=== PATIENT | female | born 1980 | race Caucasian/White ===

== ENCOUNTER 2016-11-14 11:11 | Emergency (ER) ==
[2016-11-14 11:42] LABS: MANUAL DIFF NEEDED? NO
[2016-11-14 11:44] LABS: BASO% 0.5 % (0.0-0.8); EOS# 0.17 X1000 (0.0-0.7); HEMATOCRIT 42.9 % (37.0-47.0); HEMOGLOBIN 14.9 g/dL (12.0-16.0); IMM GRAN# 0.03 X1000 (0.0-0.04); IMM GRAN% 0.4 % (0.0-0.5); LYMPH% 32.3 % (20.5-51.1); MCH 29.7 PG (27-31); MCHC 34.7 g/dL (33-37); MCV 85.6 FL (81-99); MONO# 0.82 X1000 (0.11-0.59); MONO% 9.8 % (1.7-9.3); MPV 9.7 FL (7.4-10.4); PLT 283 X1000 (130-400); RBC 5.01 XMIL (4.2-5.4)
[2016-11-14 11:49] LABS: URINE CULTURE PL NEEDED? NO; URINE SOURCE VOIDED
[2016-11-14 11:56] LABS: UR AMPHETAMINES QUAL NONE DETECTED (NONE DETECT); UR BARBITUATES QUAL NONE DETECTED (NONE DETECT); UR BENZODIAZEPIN QUAL NONE DETECTED (NONE DETECT); UR CANNABINOIDS QUAL NONE DETECTED (NONE DETECT); UR COCAINE QUAL NONE DETECTED (NONE DETECT); UR MDMA QUAL NONE DETECTED (NONE DETECT); UR METHADONE QUAL NONE DETECTED (NONE DETECT); UR METHAMPHETAMINE QUAL NONE DETECTED (NONE DETECT); UR OPIATES QUAL NONE DETECTED (NONE DETECT); UR OXYCODONE QUAL NONE DETECTED (NONE DETECT); UR PCP QUAL NONE DETECTED (NONE DETECT); UR TCA QUAL NONE DETECTED (NONE DETECT)
[2016-11-14 11:59] LABS: BILIRUBIN URINE NEGATIVE (NEGATIVE); BLOOD URINE NEGATIVE (NEGATIVE); CLARITY CLEAR (CLEAR); COLOR YELLOW; GLUCOSE URINE NEGATIVE (NEGATIVE); LEUKOCYTES URINE NEGATIVE (NEGATIVE); NITRITE URINE NEGATIVE (NEGATIVE); PROTEIN URINE NEGATIVE (NEGATIVE); UROBILINOGEN URINE NORMAL
[2016-11-14 12:04] LABS: URINE EPITHELIAL CELLS >10 /HPF (<10); URINE WBC <10 /HPF (<10)
[2016-11-14 12:11] LABS: AGAP 12; ALBUMIN 4.4 g/dL (3.5-5.0); ALKALINE PHOSPHATASE 75 U/L (32-104); BUN 8 mg/dL (8-22); CHLORIDE 103 mmol/L (98-107); COSMO 266; GOT 18 U/L (10-30); GPT 15 U/L (10-36); POTASSIUM 3.7 mmol/L (3.5-5.1); SODIUM 134 mmol/L (136-145); TCO2 19 mmol/L (25-35); TOTAL PROTEIN 7.3 g/dL (6.3-8.3)
[2016-11-14 12:17] LABS: INR 0.97 (0.86-1.15); PROTIME 13.2 Seconds (12.1-15.5)
[2016-11-14 12:18] LABS: PTT PL 28.6 Seconds (22.6-43.9)
--- NOTE | 2016-11-14 12:21 | EKG Report ---
Test Performed on : 11/14/2016 12:08:52 PM Test Reason : AMS Blood Pressure : / mmHG Vent. Rate : 069 BPM Atrial Rate : 069 BPM P-R Int : 136 ms QRS Dur : 074 ms QT Int : 382 ms P-R-T Axes : 039 088 062 degrees QTc Int : 409 ms Normal sinus rhythm. Normal ECG When compared with ECG of 15-AUG-2015 11:10, No significant change was found Unconfirmed Result
[2016-11-14 12:29] LABS: BE -3.6 mmoll (-3.0-3.0); BLOOD TYPE ARTERIAL; DRAW SITE R RADIAL; METHB 0.5 % (0.0-1.5); O2(CT) 19.9 mL/dL (15.0-23.0); PCO2(98.6) 28 mmHg (35-45); PO2(98.6) 95 mmHg (60-100); SAMPLE BLOOD; SAO2 97.8 % (95.0-100.0); THB 15.2 g/dL (11.5-17.4); pH(98.6) 7.44 (7.35-7.45)
[2016-11-14 12:31] LABS: ALLEN TEST YES; MODALITY ROOM AIR
--- NOTE | 2016-11-14 12:37 | Diag Imaging Result Document ---
PROCEDURE NAME: CHEST-PORTABLE - 11/14/2016 ERECT AP CHEST AT 1143 HOURS: FINDINGS: There is no evidence of acute cardiac or pulmonary disease. Compared to 01/20/2016, there has been no significant change. IMPRESSION: No acute disease.
--- NOTE | 2016-11-14 12:42 | Diag Imaging Result Document ---
PROCEDURE NAME: HEAD W/O CONTRAST - 11/14/2016 CT OF THE HEAD WITHOUT CONTRAST: FINDINGS: There is no evidence of mass effect, bleed, or abnormal extra-axial fluid collection. There is a calcification in the left globus pallidus which was also present on 12/24/2015. The visualized paranasal sinuses are clear. There is no evidence of acute bony disease. IMPRESSION: Stable CT of the head.
[2016-11-14] MEDS ORDERED: NS 1,000 ML IV ONE (13:13)
[2016-11-14] MEDS ORDERED: NS 500 ML ONE (13:29)
[2016-11-14] MEDS ORDERED: TYLENOL WITH CODEINE #3 PO ONE (13:35)
--- NOTE | 2016-11-14 14:33 | PROVIDER DOCUMENTATION ---
HPI-General Adult - General Chief Complaint: Stroke-Like Symptoms Stated Complaint: weakness, possible stroke Time Seen by Provider: 11/14/16 13:11 Source: patient Allergies/Adverse Reactions: Patient Allergies Allergy/AdvReac Type Severity Reaction Status Date / Time morphine Allergy Severe SWELLING Verified 11/14/16 11:23 meperidine HCl * Allergy Mild RASH Verified 11/14/16 11:23 [From Demerol] metronidazole [From Flagyl] AdvReac Intermediate VOMITING Verified 11/14/16 11: 23 Home Medications: Home Medication List Medication Instructions Recorded Confirmed Last Taken Type Gabapentin [Neurontin] 300 mg PO TID PRN #30 capsule 09/28/15 01/20/16 Unknown Rx Alprazolam [Xanax] 0.5 mg PO BID 01/20/16 01/20/16 Unknown History Metoprolol [Lopressor] 50 mg PO DAILY 01/20/16 01/20/16 Unknown History Ketorolac [Toradol] 10 mg PO Q6H PRN PRN #15 tablet 06/07/16 Unknown Rx - History of Present Illness -Gen Adult Nature of Presenting Problems: 36 yo female presents to ER with c/o left side weakness and rt side facial droop , onset 0500 today, progressively worse, has CP onset 1000, w/o vomiting, nausea w/o vomiting. pain in lower back and left arm now Location of Pain/Injury: reports: back (low back pain) Pain Radiation: reports: no radiation Quality of Pain: reports: aching Severity: reports: mild Timing: reports: improving Context/Activities at Onset: reports: none Modifying Factors: improves with: nothing Similar Symptoms Previously?: Yes Recently seen or treated by another doctor?: No Review of Systems - Adult - REVIEW OF SYSTEMS - ADULT Constitutional: reports: no symptoms reported Eyes: reports: no symptoms reported Ears, Nose, Mouth & Throat: reports: no symptoms reported Cardiovascular: reports: no symptoms reported Respiratory: reports: no symptoms reported Gastrointestinal: reports: see HPI, nausea, vomiting Genitourinary: reports: no symptoms reported Musculoskeletal: reports: see HPI, back pain Integumentary: reports: no symptoms reported Neurological: reports: see HPI Psychiatric: reports: no symptoms reported Endocrine: reports: no symptoms reported Hematologic/Lymphatic: reports: no symptoms reported Allergic/Immunologic: reports: no symptoms reported All Other Systems: Reviewed and Negative Past History - Adult - PAST MEDICAL HISTORY-ADULT Review of Records: reports: Old Records Reviewed, Nursing Assessment Review, Medications Reviewed, Social history reviewed & non-contributory. Major Childhood Illnesses: reports: denies history Cardiovascular: reports: denies history, HTN Respiratory: reports: denies history Gastrointestinal: reports: GERD Obstetrical/Gynecological: reports: other (cervical ca) Genitourinary: reports: denies history Musculoskeletal: reports: chronic pain, neck/back injury, osteoporosis Neurological: reports: headaches/migraines Psychiatric: reports: anxiety - PRIOR SURGERIES/PROCEDURES Surgical/Procedure History: reports: hysterectomy, orthopedic (extremity) - IMMUNIZATION STATUS Childhood Immunizations: See Nurse Assessment Flu Vaccine: See Nurse Assessment - SOCIAL HISTORY Smoking: cigarettes, less than 1 pack/day (1/2 ppd) Provider spent 3-5 mins advising pt. on dangers of tobacco.: Discussed manners to quit use, and f/u contacts for add'l counseling. Substance Use: denies Alcohol Use Frequency: never Living Situation: family Physical Exam-General - PHYSICAL EXAM-ADULT Initial Vital Signs Reviewed: Yes - CONSTITUTIONAL General Appearance: appears well, alert, no apparent distress - EYES Eyes: PERRL/EOMI, pink conjunctivae - HEAD, EARS, NOSE, MOUTH & THROAT HENMT: normocephalic/atraumatic, moist mucous membranes, normal ENT inspection - NECK Neck: non-tender, full range of motion, supple - RESPIRATORY Respiratory: lungs clear, normal breath sounds, no respiratory distress - CARDIOVASCULAR Cardiovascular: normal peripheral pulses, regular rate, rhythm - GASTROINTESTINAL (ABDOMEN) Abdominal Exam: normal bowel sounds, non tender, soft - MUSCULOSKELETAL Back Exam: normal inspection, other (low back pain) Extremity: normal range of motion, normal inspection Peripheral Pulses: radial (R): 2+, radial (L): 2+, dorsalis-pedis (R): 2+, dorsalis-pedis (L): 2+ - SKIN Integumentary: normal color, normal turgor, warm/dry - NEUROLOGIC Neurologic: coutierier II-XII nml as tested, grossly normal, no motor/sensory deficits - PSYCHIATRIC Psych/Mental Status: normal mood/affect, normal thought content, normal thought process, oriented x 3 Progress - PLAN OF CARE/RESULTS Progress/Plan/Lab Results: [id number] results/dx/tx/discharge and follow up instructions with patient and mother; they verbalized understanding. Laboratory Tests 11/14/16 11/14/16 11/14/16 11:15 11:25 11:25 WBC 8.35 RBC 5.01 Hgb 14.9 Hct 42.9 MCV 85.6 MCH 29.7 MCHC 34.7 RDW Std Deviation 12.1 Plt Count 283 MPV 9.7 Immature Gran % (Auto) 0.4 Neut % (Auto) 55.0 Lymph % (Auto) 32.3 [place] % (Auto) 9.8 H Eos % (Auto) 2.0 Baso % (Auto) 0.5 Immature Gran # (Auto) 0.03 Neut # (Auto) 4.59 Lymph # (Auto) 2.70 [place] # (Auto) 0.82 H Eos # (Auto) 0.17 Baso # (Auto) 0.04 PT INR APTT (Factor Assay) Specimen Type Sample Site pH pCO2 pO2 HCO3 Base Excess Oxyhemoglobin ABG O2 Sat (Calculated) ABG O2 Saturation ABG Carboxyhemoglobin ABG Methemoglobin Tyree Test A-a O2 Difference Total Hemoglobin Lactate Blood Gas Modality FiO2 % Sodium 134 L Potassium 3.7 Chloride 103 Carbon Dioxide 19 L Anion Gap 12 BUN 8 Creatinine 0.5 Estimated GFR/1.73 m2 > 60 BUN/Creatinine Ratio 16 Glucose 89 POC Glucose 74 Calculated Osmolality 266 Calcium 9.0 Total Bilirubin 1.10 H AST 18 ALT 15 Alkaline Phosphatase 75 Creatine Kinase Troponin T Total Protein 7.3 Albumin 4.4 Globulin 3.0 Albumin/Globulin Ratio 2.0 Plasma Lactate Urine Source Urine Color Urine Clarity Urine pH Ur Specific [place] Urine Protein Urine Ketones Urine Blood Urine Nitrite Urine Bilirubin Urine Urobilinogen Urine Microscopic RBC Urine WBC Urine Microscopic WBC Ur Epithelial Cells Urine Glucose Urine Opiates Screen Ur Oxycodone Screen Urine Methadone Screen Ur Barbituates Screen Ur Tricyclics Screen Ur Phencyclidine Scrn Ur Amphetamines Screen U Methamphetamines Scrn Urine MDMA Screen U Benzodiazepines Scrn Urine Cocaine Screen U Cannabinoids Screen Plasma/Serum Ethyl Alc 11/14/16 11/14/16 11/14/16 11:25 11:25 11:25 WBC RBC Hgb Hct MCV MCH MCHC RDW Std Deviation Plt Count MPV Immature Gran % (Auto) Neut % (Auto) Lymph % (Auto) [place] % (Auto) Eos % (Auto) Baso % (Auto) Immature Gran # (Auto) Neut # (Auto) Lymph # (Auto) [place] # (Auto) Eos # (Auto) Baso # (Auto) PT INR APTT (Factor Assay) Specimen Type Sample Site pH pCO2 pO2 HCO3 Base Excess Oxyhemoglobin ABG O2 Sat (Calculated) ABG O2 Saturation ABG Carboxyhemoglobin ABG Methemoglobin Tyree Test A-a O2 Difference Total Hemoglobin Lactate Blood Gas Modality FiO2 % Sodium Potassium Chloride Carbon Dioxide Anion Gap BUN Creatinine Estimated GFR/1.73 m2 BUN/Creatinine Ratio Glucose POC Glucose Calculated Osmolality Calcium Total Bilirubin AST ALT Alkaline Phosphatase Creatine Kinase 97 Troponin T < 0.010 Total Protein Albumin Globulin Albumin/Globulin Ratio Plasma Lactate Urine Source Urine Color Urine Clarity Urine pH Ur Specific [place] Urine Protein Urine Ketones Urine Blood Urine Nitrite Urine Bilirubin Urine Urobilinogen Urine Microscopic RBC Urine WBC Urine Microscopic WBC Ur Epithelial Cells Urine Glucose Urine Opiates Screen Ur Oxycodone Screen Urine Methadone Screen Ur Barbituates Screen Ur Tricyclics Screen Ur Phencyclidine Scrn Ur Amphetamines Screen U Methamphetamines Scrn Urine MDMA Screen U Benzodiazepines Scrn Urine Cocaine Screen U Cannabinoids Screen Plasma/Serum Ethyl Alc 11/14/16 11/14/16 11/14/16 11:25 11:36 11:36 WBC RBC Hgb Hct MCV MCH MCHC RDW Std Deviation Plt Count MPV Immature Gran % (Auto) Neut % (Auto) Lymph % (Auto) [place] % (Auto) Eos % (Auto) Baso % (Auto) Immature Gran # (Auto) Neut # (Auto) Lymph # (Auto) [place] # (Auto) Eos # (Auto) Baso # (Auto) PT 13.2 INR 0.97 APTT (Factor Assay) 28.6 Specimen Type Sample Site pH pCO2 pO2 HCO3 Base Excess Oxyhemoglobin ABG O2 Sat (Calculated) ABG O2 Saturation ABG Carboxyhemoglobin ABG Methemoglobin Tyree Test A-a O2 Difference Total Hemoglobin Lactate Blood Gas Modality FiO2 % Sodium Potassium Chloride Carbon Dioxide Anion Gap BUN Creatinine Estimated GFR/1.73 m2 BUN/Creatinine Ratio Glucose POC Glucose Calculated Osmolality Calcium Total Bilirubin AST ALT Alkaline Phosphatase Creatine Kinase Troponin T Total Protein Albumin Globulin Albumin/Globulin Ratio Plasma Lactate Urine Source VOIDED Urine Color YELLOW Urine Clarity CLEAR Urine pH 8.0 Ur Specific [place] 1.010 Urine Protein NEGATIVE Urine Ketones NEGATIVE Urine Blood NEGATIVE Urine Nitrite NEGATIVE Urine Bilirubin NEGATIVE Urine Urobilinogen NORMAL Urine Microscopic RBC Not Reportable Urine WBC NEGATIVE Urine Microscopic WBC <10 Ur Epithelial Cells >10 A Urine Glucose NEGATIVE Urine Opiates Screen NONE DETECTED Ur Oxycodone Screen NONE DETECTED Urine Methadone Screen NONE DETECTED Ur Barbituates Screen NONE DETECTED Ur Tricyclics Screen NONE DETECTED Ur Phencyclidine Scrn NONE DETECTED Ur Amphetamines Screen NONE DETECTED U Methamphetamines Scrn NONE DETECTED Urine MDMA Screen NONE DETECTED U Benzodiazepines Scrn NONE DETECTED Urine Cocaine Screen NONE DETECTED U Cannabinoids Screen NONE DETECTED Plasma/Serum Ethyl Alc 11/14/16 11/14/16 12:00 12:15 WBC RBC Hgb Hct MCV MCH MCHC RDW Std Deviation Plt Count MPV Immature Gran % (Auto) Neut % (Auto) Lymph % (Auto) [place] % (Auto) Eos % (Auto) Baso % (Auto) Immature Gran # (Auto) Neut # (Auto) Lymph # (Auto) [place] # (Auto) Eos # (Auto) Baso # (Auto) PT INR APTT (Factor Assay) Specimen Type ARTERIAL Sample Site R RADIAL pH 7.44 pCO2 28 L pO2 95 HCO3 22.0 Base Excess -3.6 L Oxyhemoglobin 93.0 L ABG O2 Sat (Calculated) 19.9 ABG O2 Saturation 97.8 ABG Carboxyhemoglobin 4.40 H ABG Methemoglobin 0.5 Tyree Test YES A-a O2 Difference 20.0 Total Hemoglobin 15.2 Lactate 0.60 Blood Gas Modality ROOM AIR FiO2 % 21.0 Sodium Potassium Chloride Carbon Dioxide Anion Gap BUN Creatinine Estimated GFR/1.73 m2 BUN/Creatinine Ratio Glucose POC Glucose Calculated Osmolality Calcium Total Bilirubin AST ALT Alkaline Phosphatase Creatine Kinase Troponin T Total Protein Albumin Globulin Albumin/Globulin Ratio Plasma Lactate 0.8 Urine Source Urine Color Urine Clarity Urine pH Ur Specific [place] Urine Protein Urine Ketones Urine Blood Urine Nitrite Urine Bilirubin Urine Urobilinogen Urine Microscopic RBC Urine WBC Urine Microscopic WBC Ur Epithelial Cells Urine Glucose Urine Opiates Screen Ur Oxycodone Screen Urine Methadone Screen Ur Barbituates Screen Ur Tricyclics Screen Ur Phencyclidine Scrn Ur Amphetamines Screen U Methamphetamines Scrn Urine MDMA Screen U Benzodiazepines Scrn Urine Cocaine Screen U Cannabinoids Screen Plasma/Serum Ethyl Alc Orders Category Date Time Status Cardiac Monitoring DIRECTED Care 11/14/16 11:17 Active Finger Stick Blood Sugar (ED) DIRECTED Care 11/14/16 11:17 Active Oxygen Therapy- ED Nursing DIRECTED Care 11/14/16 11:17 Active Saline Loc NOW Care 11/14/16 11:17 Active CHEST-PORTABLE [RAD] Stat Exams 11/14/16 11:17 Completed HEAD W/O CONTRAST [CT] Stat Exams 11/14/16 11:13 Completed ABG [RESP] Routine Lab 11/14/16 12:15 Completed ALCOHOL BLOOD Stat Lab 11/14/16 11:25 Completed CBC WITH ELECTRONIC DIFF [HEME] Stat Lab 11/14/16 11:25 Completed CK PROFILE [SP CHEM] Stat Lab 11/14/16 11:25 Completed CMP [COMPREHENSIVE METABOLIC PANEL] [CHEM] Stat Lab 11/14/16 11:25 Completed LACTATE, PLASMA [CHEM] Stat Lab 11/14/16 12:00 Completed [address]IME WITH INR PL [COAG] Stat Lab 11/14/16 11:[address] [COAG] Stat Lab 11/14/16 11:25 Completed TROPONIN T Stat Lab 11/14/16 11:[address] W/POSS RFLX CULT [URINALYSIS] Stat Lab 11/14/16 11:36 Completed URINE DRUG SCREEN PL Stat Lab 11/14/16 11:36 Completed 0.9% Sodium Chloride Inj [Ns] 1,000 ml Med 11/14/16 13:13 Discontinued IV 999 mls/hr 0.9% Sodium Chloride Inj [Ns] 500 ml Med 11/14/16 13:29 Discontinued .ROUTE As Directed Acetaminophen with Codeine [Tylenol with Codeine #3] Med 11/14/16 13:35 Discontinued 1 each PO NOW ONE Pulse Oximetry Stat Oth 11/14/16 11:17 Active EKG [EKG] Stat Ther 11/14/16 11:17 Draft Vital Signs - 24 hr 11/14/16 11/14/16 11/14/16 11:16 13:00 13:43 Temperature 98.8 F Pulse Rate 74 68 69 Respiratory 18 18 18 Rate Blood Pressure 146/084 125/78 115/074 O2 Sat by Pulse 99 98 99 Oximetry 11/14/16 14:52 Temperature Pulse Rate 74 Respiratory 18 Rate Blood Pressure 118/77 O2 Sat by Pulse 96 Oximetry Departure - Departure Time of Disposition Order: 14:28 DIAGNOSIS: Migraine aura, persistent, intractable, with status migrainosus, Nausea Back pain Qualifiers: Back pain location: low back pain Chronicity: acute Back pain laterality: bilateral Sciatica presence: with sciatica Sciatica laterality: sciatica of left side Qualified Code(s): M54.42 - Lumbago with sciatica, left side Disposition: HOME 01 Certified Medical Emergency: Emergent Condition: Good Additional Instructions: Follow up with a neurologist. [facility] Continue home medications as prescribed. Apply ice to lower back Use ibuprofen over the counter. ED Follow Up Instructions: You have been treated by a care provider in the Emergency Department. These instructions are being provided to you so you can have an understanding of how to care for yourself upon discharge. Upon discharge from the Emergency Department, you are responsible for making arrangements for follow-up care by a physician of your choice. Take all prescribed medications as directed. Return to the Emergency Department immediately for any new or worsening symptoms. You may call the Physician Referral phone number at [phone] to obtain a list of Physicians who are taking new patients. Referrals: Jake Rodriguez MD [Primary Care Provider] - Forms: Return to School/Parent Work Instructions: Migraine Headache, [id number], Back Pain, Adult, Nausea, Adult , [id number]
--- NOTE | 2016-11-14 14:50 | ED EKG INTERP ---
EKG Interpretation - EKG Time of EKG reading by physician:: 12:08 EKG Read and Signed by:: Mu Fernandes EKG Interpretation (*Must complete 3 of following elements*): Normal Rate: 69 Rhythm: normal sinus rhythm Comments: normal ECG Attestation - Scribe Verification/Attestation Scribe:: Anju Holder Acting as Scribe for:: Mu Fernandes Scribe documention review:: This chart was documented by a scribe and accurately reflects the service the provider performed and the decisions made by the provider.
[2016-11-14 14:53] VITALS: BP 118/77
== END 2016-11-14 14:53 | disposition home or self-care (01) ==
LOC: P.ED 11:11
DX: G43.511 Persistent migraine aura without cerebral infarction, intractable, with status migrainosus (principal); R11.2 Nausea with vomiting, unspecified; M54.42 Lumbago with sciatica, left side; M62.81 Muscle weakness (generalized); R29.810 Facial weakness; R07.9 Chest pain, unspecified; M79.602 Pain in left arm; I10 Essential (primary) hypertension; G89.29 Other chronic pain; M81.0 Age-related osteoporosis without current pathological fracture; F41.9 Anxiety disorder, unspecified; F17.210 Nicotine dependence, cigarettes, uncomplicated; Z79.899 Other long term (current) drug therapy; Z71.6 Tobacco abuse counseling; Z85.41 Personal history of malignant neoplasm of cervix uteri
CPT/HCPCS: 70450; 71010; 80053; 80305; 81001; 82550; 82805; 82948; 83605; 84484; 85025; 85610; 85730; 93005; G0480; J7040; 80320